=== PATIENT | male | born 2000 | race Caucasian/White ===

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

== ENCOUNTER 2023-08-01 09:50 | Emergency (ER) | payer OTHER ==
[2023-08-01 10:17] VITALS: RESP 18
--- NOTE | 2023-08-01 11:19 | XR ---
EXAMINATION TYPE: XR chest 2V DATE OF EXAM: 08/01/2023 COMPARISON: NONE HISTORY: Fever TECHNIQUE: Frontal and lateral views of the chest are obtained. FINDINGS: There is no focal air space opacity, pleural effusion, or pneumothorax seen. The cardiac silhouette size is within normal limits. The osseous structures are intact. IMPRESSION: No acute cardiopulmonary process.
[2023-08-01 11:40] VITALS: BP 135/78; PULSE 113; TEMP 99.7
[2023-08-01] MEDS: KETOROLAC 15 MG/ML 1 ML VIAL IM STA (11:44)
[2023-08-01] MEDS: ACETAMINOPHEN TAB 500 MG TAB PO STA (11:44)
--- NOTE | 2023-08-01 11:48 | ED ---
URI HPI - General Chief Complaint: Upper Respiratory Infection Stated Complaint: Headache/fever Time Seen by Provider: 08/01/23 09:55 Source: patient, RN notes reviewed Mode of arrival: ambulatory Limitations: no limitations - History of Present Illness Initial Comments: 23-year-old male presents emergency department with chief complaint of fever chills cough congestion body aches symptoms started last 24 hours. Patient states that he seemed to worsen. Patient has nonproductive cough and sore throat denies neck pain or neck stiffness states she has had multiple sick contacts at work. Patient states that he has no ear pain no abdominal complaints. - Related Data Previous Rx's Medication Instructions Recorded Amoxicillin 500 mg PO Q8H #30 capsule 01/20/17 Famotidine [Pepcid] 40 mg PO BID #30 tab 07/10/19 Nystatin/Triamcin 1 applicate TOPICAL BID #1 tube 07/10/19 [Nystatin-Triamcinolone Cream] hydrOXYzine HCL [Atarax] 25 mg PO TID PRN #30 tab 07/10/19 Allergies Allergy/AdvReac Type Severity Reaction Status Date / Time No Known Allergies Allergy Verified 07/10/19 00:54 Review of Systems ROS Statement: Those systems with pertinent positive or pertinent negative responses have been documented in the HPI. ROS Other: All systems not noted in ROS Statement are negative. Past Medical History Past Medical History: No Reported History Additional Past Medical History / Comment(s): migraines History of Any Multi-Drug Resistant Organisms: None Reported Past Surgical History: Adenoidectomy, Tonsillectomy Past Psychological History: No Psychological Hx Reported Past Alcohol Use History: None Reported Past Drug Use History: None Reported General Exam Limitations: no limitations General appearance: alert, in no apparent distress Head exam: Present: atraumatic, normocephalic, normal inspection Eye exam: Present: normal appearance, PERRL, EOMI. Absent: scleral icterus, co njunctival injection, periorbital swelling ENT exam: Present: normal exam, normal oropharynx, mucous membranes moist Neck exam: Present: normal inspection, full ROM. Absent: tenderness, meningismus, lymphadenopathy Respiratory exam: Present: normal lung sounds bilaterally. Absent: respiratory distress, wheezes, rales, rhonchi, stridor Cardiovascular Exam: Present: normal rhythm, tachycardia, normal heart sounds. Absent: systolic murmur, diastolic murmur, rubs, gallop, clicks GI/Abdominal exam: Present: soft, normal bowel sounds. Absent: distended, tenderness, guarding, rebound, rigid Course Vital Signs 08/01/23 08/01/23 08/01/23 09:51 10:07 11:39 Temperature 97.3 F L 99.7 F H Pulse Rate 117 H 113 H Respiratory 20 18 18 Rate Blood Pressure 133/87 135/78 O2 Sat by Pulse 98 97 Oximetry Medical Decision Making - Medical Decision Making Was pt. sent in by a medical professional or institution (, SANDY, LABOR RELATIONS MANAGER, urgent care, hospital, or [facility]...) When possible be specific @ -No Did you speak to anyone other than the patient for history (EMS, parent, family, police, friend...)? What history was obtained from this source @ -No Did you review nursing and triage notes (agree or disagree)? Why? @ -I reviewed and agree with nursing and triage notes Were old charts reviewed (outside hosp., previous admission, EMS record, old EKG, old radiological studies, urgent care reports/EKG's, [facility] records)? Report findings @ -No old charts were reviewed Differential Diagnosis (chest pain, altered mental status, abdominal pain women, abdominal pain men, vaginal bleeding, weakness, fever, dyspnea, syncope, headache, dizziness, GI bleed, back pain, seizure, CVA, palpatations, mental health, musculoskeletal)? @ -[COVID 19, RSV, influenza, pneumonia, acute bronchitis, URI, this list is not all inclusive EKG interpreted by me (3pts min.). @ -None X-rays interpreted by me (1pt min.). @ -Chest x-ray shows no acute cardiopulmonary process CT interpreted by me (1pt min.). @ -[None done U/S interpreted by me (1pt. min.). @ -None done What testing was considered but not performed or refused? (CT, X-rays, U/S, labs)? Why? @ -None What meds were considered but not given or refused? Why? @ -None Did you discuss the management of the patient with other professionals (professionals i.e. SANDY Gonzalez, LABOR RELATIONS MANAGER, lab, RT, psych nurse, professor of social work, chandelier maker, teacher, production officer, case aide)? Give summary @ -No Was smoking cessation discussed for >3mins.? @ -No Was critical care preformed (if so, how long)? @ -No Were there social determinants of health that impacted care today? How? (Homelessness, low income, unemployed, alcoholism, drug addiction, transportation, low edu. Level, literacy, decrease access to med. care, senior care, rehab)? @ -No Was there de-escalation of care discussed even if they declined (Discuss DNR or withdrawal of care, Hospice)? DNR status @ -No What co-morbidities impacted this encounter? (DM, HTN, Smoking, COPD, CAD, Cancer, CVA, ARF, Chemo, Hep., AIDS, mental health diagnosis, sleep apnea, morbid obesity)? @ -None Was patient admitted / discharged? Hospital course, mention meds given and route, prescriptions, significant lab abnormalities, going to OR and other pertinent info. @ -Discharge patient has a viral URI negative Cepheid, negative strep. Chest x- ray was unremarkable be discharged with supportive treatment return parameters. Undiagnosed new problem with uncertain prognosis? @ -No Drug Therapy requiring intensive monitoring for toxicity (Heparin, Nitro, Insulin, Cardizem)? @ -No Were any procedures done? @ -No Diagnosis/symptom? @ -Viral URI Acute, or Chronic, or Acute on Chronic? @ -Acute Uncomplicated (without systemic symptoms) or Complicated (systemic symptoms)? @ -Uncomplicated Side effects of treatment? @ -No Exacerbation, Progression, or Severe Exacerbation? @ -No Poses a threat to life or bodily function? How? (Chest pain, USA, IA, pneumonia, PE, COPD, DKA, ARF, appy, cholecystitis, CVA, Diverticulitis, Homicidal, Suicidal, threat to staff... and all critical care pts) @ -No - Lab Data Lab Results 08/01/23 08/01/23 Range/Units 10:02 11:09 Influenza Type A (PCR) Not Detected (Not Detectd) Influenza Type B (PCR) Not Detected (Not Detectd) RSV (PCR) Not Detected (Not Detectd) SARS-CoV-2 (PCR) Not Detected (Not Detectd) Group A Strep (PCR) NOT DETECTED (Not Detectd) Disposition Clinical Impression: Acute upper respiratory infection Disposition: HOME SELF-CARE Condition: Stable Instructions (If sedation given, give patient instructions): Upper Respiratory Infection (ED) Additional Instructions: Please return to the Emergency Department if symptoms worsen or any other concerns. Is patient prescribed a controlled substance at d/c from ED?: No Referrals: None,Stated [Primary Care Provider] - 1-2 days Time of Disposition: 11:46
== END 2023-08-01 11:55 | disposition home or self-care (01) ==
LOC: EC 09:50
DX: J06.9 Acute upper respiratory infection, unspecified (principal); Z20.822 Contact with and (suspected) exposure to COVID-19
CPT/HCPCS: 87651; 87636; 71046; 99284; 96372; J1885

== ENCOUNTER 2023-08-02 06:17 | Emergency (ER) | payer OTHER ==
[2023-08-02] MEDS: KETOROLAC 15 MG/ML 1 ML VIAL IM STA (07:57)
[2023-08-02] MEDS: ONDANSETRON ODT 4 MG TAB PO STA (07:58)
--- NOTE | 2023-08-02 08:00 | ED ---
URI HPI - General Chief Complaint: Upper Respiratory Infection Stated Complaint: Fever, Sore Throat Time Seen by Provider: 08/02/23 07:41 Source: patient, RN notes reviewed Mode of arrival: ambulatory Limitations: no limitations - History of Present Illness Initial Comments: This is a 23 year old male who presents to the emergency department for headache s, fevers, a sore throat, and body aches. Patient was evaluated here yesterday. States that since going home, symptoms have gotten worse. Denies any coughing, chest pain, or shortness of breath. Reports nausea, body aches, and migraines as his most bothersome symptoms. He does have a hx of migraines and he would not describe this as the worse headache of his life. He took Tylenol at home with so me relief in symptoms. Additionally, he noticed a gland on the right side of his neck that is increasingly swollen. This is not painful. MD Complaint: sore throat - Related Data Previous Rx's Medication Instructions Recorded Amoxicillin 500 mg PO Q8H #30 capsule 01/20/17 Famotidine [Pepcid] 40 mg PO BID #30 tab 07/10/19 Nystatin/Triamcin 1 applicate TOPICAL BID #1 tube 07/10/19 [Nystatin-Triamcinolone Cream] hydrOXYzine HCL [Atarax] 25 mg PO TID PRN #30 tab 07/10/19 Amoxic-Pot Clav 875-125Mg 1 tab PO Q12HR 7 Days #14 tab 08/02/23 [Augmentin 875-125] Naproxen [EC-Naprosyn] 500 mg PO BID PRN #30 tab 08/02/23 Ondansetron Odt [Zofran Odt] 4 mg PO Q8HR PRN #15 tab 08/02/23 Allergies Allergy/AdvReac Type Severity Reaction Status Date / Time No Known Allergies Allergy Verified 08/02/23 06:31 Review of Systems ROS Statement: Those systems with pertinent positive or pertinent negative responses have been documented in the HPI. ROS Other: All systems not noted in ROS Statement are negative. Past Medical History Past Medical History: No Reported History Additional Past Medical History / Comment(s): migraines History of Any Multi-Drug Resistant Organisms: None Reported Past Surgical History: Adenoidectomy, Tonsillectomy Past Psychological History: No Psychological Hx Reported Smoking Status: Never smoker Past Alcohol Use History: Occasional Past Drug Use History: None Reported General Exam Limitations: no limitations General appearance: alert, in no apparent distress Head exam: Present: atraumatic, normocephalic, normal inspection Eye exam: Present: normal appearance, PERRL, EOMI. Absent: scleral icterus, conjunctival injection, periorbital swelling ENT exam: Present: other (Right cervical lymphadenopathy) Respiratory exam: Present: normal lung sounds bilaterally. Absent: respiratory distress, wheezes, rales, rhonchi, stridor Cardiovascular Exam: Present: regular rate, normal rhythm, normal heart sounds. Absent: systolic murmur, diastolic murmur, rubs, gallop, clicks Neurological exam: Present: alert, oriented X3, CN II-XII intact Psychiatric exam: Present: normal affect, normal mood Skin exam: Present: warm, dry, intact, normal color. Absent: rash Course Vital Signs 08/02/23 08/02/23 08/02/23 06:29 10:55 11:33 Temperature 98.5 F 98.7 F 98.4 F Pulse Rate 106 H 90 86 Respiratory 20 18 20 Rate Blood Pressure 171/95 116/76 120/70 O2 Sat by Pulse 97 99 99 Oximetry Medical Decision Making - Medical Decision Making This is a 23 year old male who presents to the emergency department for headaches, nausea, and lymphadenopathy. Was pt. sent in by a medical professional or institution? @ -No Did you speak to anyone other than the patient for history? @ -No Did you review nursing and triage notes? @ -Yes, and I agree, it is accurate with regards to the patient's symptoms. Were old charts reviewed? @ -Rapid strep, COVID, influenza, and RSV testing from yesterday which were negative. Differential Diagnosis? @ -Differential Headache: Migraine, tension, cluster, carbon monoxide, central venous thrombosis, pension karma temporal arteritis, acute closure glaucoma, intercranial hemorrhage, mastoiditis, sinusitis, head injury, this is not meant to be an all-inclusive li st. EKG interpreted by me (3pts min.)? @ -Not obtained X-rays interpreted by me (1pt min.)? @ -Not obtained CT interpreted by me (1pt min.)? @ -Not obtained U/S interpreted by me (1pt. min.)? @ -Not obtained What testing was considered but not performed? (CT, X-rays, U/S, labs)? Why? @ -None What meds were considered but not given? Why? @ -None Did you discuss the management of the patient with other professionals? @ -No Did you reconcile home meds? @ -No Was smoking cessation discussed for >3mins.? @ -No Was critical care preformed (if so, how long)? @ -No Were there social determinants of health that impacted care today? How? (Homelessness, low income, unemployed, alcoholism, drug addiction, transportation, low edu. Level, literacy, decrease access to med. care, half-way, rehab)? @ -No Was there de-escalation of care discussed even if they declined? (Discuss DNR or withdrawal of care, Hospice)? @ -No What co-morbidities impacted this encounter? (DM, HTN, Smoking, COPD, CAD, Cancer, CVA, Hep., AIDS, mental health diagnosis, sleep apnea, morbid obesity)? @ -Migraines Was patient admitted / discharged? @ -Discharged. Rapid strep test, Covid, influenza, and RSV testing from yesterday were reviewed and found to be negative. Patient was noted to have lym phadenopathy on the right side of his neck on exam. Discussed with the patient the option of antibiotic management for lymphadenitis, and he requested to proceed. He was also given a migraine cocktail consisting of Decadron, Toradol, Reglan, and Benadryl for the headache, which he felt was beneficial. At that point, he felt stable for discharge home. Prescription for Augmentin, Naproxen, and Zofran provided with dosing instructions reviewed. Otherwise advised follow-up with his primary care provider. Undiagnosed new problem with uncertain prognosis? @ -None Drug Therapy requiring intensive monitoring for toxicity (Heparin, Nitro, Insulin, Cardizem)? @ -None Were any procedures done? @ -None Diagnosis/symptom? @ -Lymphadenitis, headache Acute, or Chronic, or Acute on Chronic? @ -Acute Uncomplicated (without systemic symptoms) or Complicated (systemic symptoms)? @ -Uncomplicated Side effects of treatment? @ -None Exacerbation, Progression, or Severe Exacerbation] @ -Not applicable Poses a threat to life or bodily function? @ -No Return precautions reviewed in depth, the patient is instructed to return to the emergency department with any new, worsening, or concerning symptoms. Patient verbalized understanding. This case was discussed in detail with the attending ED physician, Dr. Ramirez. Presentation, findings, and treatment plan discussed in detail as well. Disposition Clinical Impression: Lymphadenitis, Headache Disposition: HOME SELF-CARE Instructions (If sedation given, give patient instructions): Lymphadenopathy (ED), Upper Respiratory Infection (ED), Adenitis (ED) Additional Instructions: Return to the emergency department with any new, worsening, or concerning symptoms. Take the antibiotic as prescribed for 7 days. Take the naproxen twice daily as needed for headaches or other pain. If you choose to take this, do not take any other anti-inflammatories such as ibuprofen, take one or the other. You may take it with Tylenol. You can take the Zofran up to every 8 hours as needed for nausea and vomiting. Slowly advance your diet as tolerated and remain well-hydrated. Follow up with your primary care provider in 1-2 days. Prescriptions: Amoxic-Pot Clav 875-125Mg [Augmentin 875-125] 1 tab PO Q12HR 7 Days #14 tab Naproxen [EC-Naprosyn] 500 mg PO BID PRN #30 tab PRN Reason: Pain Ondansetron Odt [Zofran Odt] 4 mg PO Q8HR PRN #15 tab PRN Reason: Nausea And Vomiting Is patient prescribed a controlled substance at d/c from ED?: No Referrals: None,Stated [Primary Care Provider] - 1-2 days Time of Disposition: 11:10
[2023-08-02] MEDS: AMOXIC-POT CLAV 875-125MG 1 EACH TAB PO STA ×2 (08:09→09:22)
[2023-08-02] MEDS: ONDANSETRON 4 MG/2 ML VIAL IM STA (08:28)
[2023-08-02] MEDS: SODIUM CHLORIDE 0.9% 1,000 ML IV STA (09:59)
[2023-08-02] MEDS: DEXAMETHASONE SOD PHOSPHATE 10 MG/ML 1 ML VIAL IVP STA (10:08)
[2023-08-02] MEDS: KETOROLAC 15 MG/ML 1 ML VIAL IVP STA (10:09)
[2023-08-02] MEDS: diphenhydrAMINE 50 MG/ML 1 ML VIAL IVP STA (10:09)
[2023-08-02] MEDS: METOCLOPRAMIDE 5 MG/ML 2 ML VIAL IVP STA (10:09)
[2023-08-02] MEDS: traMADol 50 MG STARTER PACK 3 TAB BTL PO STA (11:29)
[2023-08-02] MEDS: ONDANSETRON 4 MG ODT STARTER PACK 2 TAB BTL PO STA (11:29)
[2023-08-02 11:35] VITALS: BP 120/70; PULSE 86; RESP 20; TEMP 98.4
== END 2023-08-02 11:46 | disposition home or self-care (01) ==
LOC: EC 06:17
DX: I88.9 Nonspecific lymphadenitis, unspecified (principal); R51.9 Headache, unspecified
CPT/HCPCS: 99284; 96374; 96375 ×3; 96372 ×2; 96361; J1200; J1100; J2765; J2405; J1885; S0119